=== PATIENT | female | born 1965 | race African-American/Black ===

== ENCOUNTER 2019-08-01 14:18 | Emergency (ER) | payer SELFPAY ==
[~2019-08-01] VITALS: Ht 152.4 cm; Wt 72.6 kg
[2019-08-01 14:35] VITALS: BP 146/86
--- NOTE | 2019-08-01 14:36 | NUR ---
SENT TO LOBBY FOR WATING. NO ROOM AVAILABLE AT THIS TIME.
--- NOTE | 2019-08-01 16:36 | NUR ---
PT AMBULATED TO BED WITH FAMILY
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
--- NOTE | 2019-08-01 16:49 | NUR ---
X-RAY AT BEDSIDE
--- NOTE | 2019-08-01 17:30 | NUR ---
ERMD AT BEDSIDE EVALUATING PT
[2019-08-01] MEDS ORDERED: KETOROLAC 30 MG/ML VIAL IM ONE (17:35)
[2019-08-01 18:09] VITALS: BP 141/88
--- NOTE | 2019-08-01 18:10 | NUR ---
Patient discharged with v/s stable. Written and verbal after care instructions given and explained. Patient alert, oriented and verbalized understanding of instructions. Ambulatory with steady gait. All questions addressed prior to discharge. ID band removed. Patient advised to follow up with PMD. Rx of NORCO, IBUPROFEN given. Patient educated on indication of medication including possible reaction and side effects. Opportunity to ask questions provided and answered.
== END 2019-08-01 18:10 | disposition home or self-care (01) ==
LOC: MED 14:18
DX: M25.512 Pain in left shoulder (principal); M65.28 Calcific tendinitis, other site; Z91.018 Allergy to other foods
CPT/HCPCS: 73030; 96372; 99283; J1885; Q0092

== ENCOUNTER 2023-02-18 10:56 | Emergency (ER) | payer MEDICAID ==
[~2023-02-18] VITALS: Ht 162.6 cm; Wt 90.7 kg
[2023-02-18 11:17] VITALS: BP 165/91; PULSE 74; RESP 20; TEMP 97.8; O2SAT 98
--- NOTE | 2023-02-18 11:40 | NUR ---
PT AMBULATED TO BED 3
[2023-02-18 11:57] LABS: BASOPHILS # (AUTO) 0.1 K/uL (0.00-0.22); BASOPHILS % (AUTO) 0.9 % (0.0-2.0); EOSINOPHILS # (AUTO) 0.2 K/uL (0-0.4); EOSINOPHILS % (AUTO) 1.9 % (0.0-4.0); HEMATOCRIT 41.5 % (36-48); HEMOGLOBIN 13.6 g/dL (12.0-16.0); LYMPHOCYTES # (AUTO) 1.7 K/uL (2.5-16.5); LYMPHOCYTES % (AUTO) 20.8 % (20.5-51.1); MEAN CORPUSCULAR HEMOGLOBIN 29 pg (27-31); MEAN CORPUSCULAR HGB CONC 33 g/dL (33-37); MEAN CORPUSCULAR VOLUME 87.4 fL (80-94); MONOCYTES # (AUTO) 0.3 K/uL (0.8-1.0); MONOCYTES % (AUTO) 3.9 % (1.7-9.3); NEUTROPHILS # (AUTO) 5.9 K/uL (1.8-7.7); NEUTROPHILS % (AUTO) 72.5 % (42.2-75.2); PLATELET COUNT (AUTO) 297 K/uL (140-450); RED BLOOD CELL COUNT(AUTO) 4.75 MIL/uL (4.20-5.40); RED CELL DISTRIBUTION WIDTH 13.7 % (11.6-13.7); WHITE BLOOD COUNT (AUTO) 8.1 K/uL (4.8-10.8)
[2023-02-18] MEDS ORDERED: KETOROLAC 60 MG/2 ML VIAL IM ONE (12:05)
[2023-02-18 12:10] VITALS: O2SAT 98
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
[2023-02-18 12:16] LABS: ALBUMIN 3.5 g/dL (3.4-5.0); ANION GAP 10.7 (8-16); CREATININE 0.8 mg/dL (0.6-1.3); POTASSIUM 3.7 mmol/L (3.5-5.1); TOTAL BILIRUBIN 0.4 mg/dL (0.0-1.0)
--- NOTE | 2023-02-18 12:18 | NUR ---
pt taken to ct via w/c
--- NOTE | 2023-02-18 12:25 | NUR ---
pt brought back via w/c
[2023-02-18] MEDS ORDERED: TRAM-748 PO (13:47)
[2023-02-18] MEDS ORDERED: NITR100C7 PO (13:47)
[2023-02-18 13:52] VITALS: TEMP 97.8
[2023-02-18] MEDS ORDERED: HYDR-4004 PO (13:53)
[2023-02-18 13:55] VITALS: BP 171/91; PULSE 79; RESP 18; O2SAT 98
--- NOTE | 2023-02-18 13:55 | NUR ---
Patient discharged with v/s stable. Written and verbal after care instructions given and explained. Patient alert, oriented and verbalized understanding of instructions. Ambulatory with steady gait. All questions addressed prior to discharge. ID band removed. Patient advised to follow up with PMD. Rx of MACROBID, TRAMADOL given. Patient educated on indication of medication including possible reaction and side effects. Opportunity to ask questions provided and answered.
== END 2023-02-18 13:55 | disposition home or self-care (01) ==
LOC: MED 10:56
DX: N39.0 Urinary tract infection, site not specified (principal); I10 Essential (primary) hypertension; Z79.899 Other long term (current) drug therapy
CPT/HCPCS: 36415; 74176; 80053; 81002; 85025; 96372; 99285; J1885